=== PATIENT | male | born 1940 | race Caucasian/White ===

== ENCOUNTER 2020-11-01 11:43 | Inpatient (IN) | payer MEDICARE ==
[~2020-11-01] VITALS: Ht 172.7 cm; Wt 75.7 kg
[~2020-11-01 11:43] MED LIST: NINTEDANIB PO
[2020-11-01] MEDS ORDERED: ALLOPURINOL300 MG PO (12:03)
[2020-11-01] MEDS ORDERED: NEXIUM20 MG PO (12:03)
[2020-11-01] MEDS ORDERED: NAC600 MG (12:03)
[2020-11-01] MEDS ORDERED: FOLIC ACID0.4 MG PO (12:03)
[2020-11-01] MEDS ORDERED: KRILL OIL 1,001 EACH (12:03)
[2020-11-01] MEDS ORDERED: ZINC50 M1 (12:03)
[2020-11-01] MEDS ORDERED: SIMVASTATIN40 MG PO (12:03)
[2020-11-01] MEDS ORDERED: FUROSEMIDE40 MG PO (12:03)
[2020-11-01] MEDS ORDERED: IRON18 MG (12:03)
[2020-11-01] MEDS ORDERED: LORATADINE10 MG PO (12:03)
[2020-11-01] MEDS ORDERED: VITAMIN D350 MCG (12:03)
[2020-11-01] MEDS ORDERED: TRAZODONE HCL100 MG PO (12:03)
[2020-11-01] MEDS ORDERED: OFEV100 MG (12:03)
[2020-11-01] MEDS ORDERED: SODIUM CHLORIDE 0.9% 1000ML 1,000 ML IV STA (12:03)
[2020-11-01] MEDS ORDERED: ASPIRIN EC81 MG PO (12:03)
[2020-11-01] MEDS ORDERED: PROBIOTIC & AC1 EACH PO (12:03)
[2020-11-01] MEDS ORDERED: SODIUM CHLORIDE 0.9% 1000ML 1,000 ML ONE (12:51)
[2020-11-01] MEDS ORDERED: CEFTRIAXONE SOD 1 GM/50 ML BAG IV ONE (13:30)
[2020-11-01] MEDS ORDERED: SODIUM CHLORIDE 0.9% 1000ML 1,000 ML IV SCH (13:30)
[2020-11-01] MEDS ORDERED: CEFTRIAXONE SOD 1 GM/50 ML BAG IV SCH (13:30)
[2020-11-01] MEDS ORDERED: ONDANSETRON HCL INJ 2MG/ML 2ML 2 MG/ML VIAL IV PRN (13:30)
[2020-11-01] MEDS ORDERED: CEFTRIAXONE SOD 1 GM in SODIUM CHLORIDE 0.9% 50ML 50 ML IV SCH (14:00)
[2020-11-01] MEDS: LACTATED RINGER'S 1,000 ML INJ SCH (15:15)
[2020-11-01 16:14] VITALS: BP 122/63
[2020-11-01 20:00] VITALS: BP 99/49
[2020-11-01] MEDS ORDERED: CHOLESTYRAMINE 4 GM PACKET PO PRN (22:00)
[2020-11-02] VITALS: BP 110/48
[2020-11-02 04:00] VITALS: BP 115/59
[2020-11-02] MEDS: LACTATED RINGER'S 1,000 ML INJ SCH (04:48)
[2020-11-02 06:24] LABS: BASOPHILS # (AUTO) 0.1 (0.0-0.1); BASOPHILS % 0.5 % (0.0-1.0); EOSINOPHILS # (AUTO) 0.2 (0.0-0.4); HEMATOCRIT 37.1 % (38.2-49.6); HEMOGLOBIN 12.4 g/dL (14.0-18.0); LYMPHOCYTES # (AUTO) 1.9 (1.0-3.2); LYMPHOCYTES % 19.1 % (18.0-39.1); MEAN CORPUSCULAR HEMOGLOBIN 32.4 pg (28-32); MEAN CORPUSCULAR HGB CONC 33.4 g/dL (31-35); MEAN CORPUSCULAR VOLUME 96.9 fL (81-99); MONOCYTES # (AUTO) 0.9 (0.2-0.8); MONOCYTES % 8.4 % (4.4-11.3); NEUTROPHILS # (AUTO) 7.1 (2.1-6.9); NEUTROPHILS % 69.6 % (38.7-80.0); PLATELET COUNT 231 x10e3/uL (140-360); RED BLOOD COUNT 3.83 x10e6/uL (4.3-5.7); RED CELL DISTRIBUTION WIDTH 14.2 % (11.7-14.4)
[2020-11-02 06:53] LABS: ANION GAP 10.5 mmol/L (8-16); BLOOD UREA NITROGEN 15 mg/dL (7-26); BUN/CREATININE RATIO 15 (6-25); CALCIUM 8.2 mg/dL (8.4-10.2); CARBON DIOXIDE 22 mmol/L (22-29); CHLORIDE 111 mmol/L (98-107); CREATININE, SERUM 1.02 mg/dL (0.72-1.25); EST GLOMERULAR FILTRATION RATE > 60 ML/MIN (60-); GLUCOSE 91 mg/dL (74-118); POTASSIUM 3.5 mmol/L (3.5-5.1); SODIUM 140 mmol/L (136-145)
[2020-11-02 07:09] LABS: CHOL/HDL RATIO 3.4 (3.9-4.7); MAGNESIUM 1.3 MG/DL (1.3-2.1); PHOSPHORUS 2.8 MG/DL (2.3-4.7)
[2020-11-02 07:30] LABS: THYROID STIMULATING HORMONE 0.67 uIU/mL (0.350-4.940)
[2020-11-02] MEDS ORDERED: SODIUM CHLORIDE 0.9% 50ML 50 ML ONE (07:50)
[2020-11-02] MEDS ORDERED: CEFTRIAXONE SOD 1 GM VIAL ONE (07:50)
[2020-11-02 08:08] VITALS: BP 121/57
[2020-11-02 08:31] VITALS: BP 121/57
[2020-11-02] MEDS ORDERED: CEFTRIAXONE SOD 1 GM in SODIUM CHLORIDE 0.9% 50ML 50 ML IV SCH (09:00)
[2020-11-02 11:30] VITALS: BP 107/52
[2020-11-02 15:49] VITALS: BP 103/49
== END 2020-11-02 17:20 | disposition home or self-care (01) | DRG 641 ==
LOC: FSED 12:05 → ERHOLD 13:32 → MED/SURG2 14:48
PROVIDERS: ADMIT Internal Medicine; ATTEND Internal Medicine
DX: E86.0 Dehydration (principal); R53.83 Other fatigue; E11.9 Type 2 diabetes mellitus without complications; I10 Essential (primary) hypertension; J84.10 Pulmonary fibrosis, unspecified; Z90.49 Acquired absence of other specified parts of digestive tract; Z20.822 Contact with and (suspected) exposure to COVID-19; K21.9 Gastro-esophageal reflux disease without esophagitis; I27.20 Pulmonary hypertension, unspecified; R91.8 Other nonspecific abnormal finding of lung field
CPT/HCPCS: 36415; 71045; 71250; 80048; 80061; 80076; 81003; 83690; 83735; 84100; 84443; 85025; 87040; 96361; 99284; J0696; J7030; J7121; U0002